=== PATIENT | male | born 1955 | race Two or more races ===

== ENCOUNTER 2024-08-14 11:56 | Emergency (ER) | payer MEDICARE, MEDICAID, SELFPAY ==
[2024-08-14 11:58] VITALS: BMI 33.7
[2024-08-14 12:39] VITALS: BP 152/92; PULSE 81; RESP 18; TEMP 36.9; O2SAT 94
--- NOTE | 2024-08-14 12:39 | PD.EDADULT ---
ED General RME/HPI General Chief complaint: Skin/Abscess/Foreign Body Stated complaint: RASH X 3 DAYS, GETTING WORSE Time Seen by Provider: 08/14/24 12:39 Arrival date/time: 08/14/24 11:56 CC: Rash spread out of the buttocks anterior and posterior legs and abdomen. Patient insistent that it happened 2 days after starting fluticasone and albuterol over the patient 2 weeks ago started on amoxicillin and azithromycin for a throat infection . Patient denies shortness of breath or difficulty breathing. Patient states a similar episode years ago which required hospital stay. Patient is awake alert oriented nontoxic-appearing not in any acute distress but mildly anxious. Related Data Previous Rx's ?Medication ?Instructions ?Recorded famotidine 20 mg tablet 20 mg PO QDAY #20 tabs 08/14/24 prednisone 20 mg tablet See Taper PO BID 3 days #6 tabs 08/14/24 Allergies Allergy/AdvReac Type Severity Reaction Status Date / Time No Known Allergies Allergy Verified 08/14/24 12:02 Review of Systems Review of Systems Narrative Review of Systems: GEN: No fever, no chills, no weight loss EYES: No discharge, no visual changes, no pain HEENT: No ear pain, no congestion, no sore throat PULM: No shortness of breath, no cough, no congestion CV: No chest pain, no dyspnea on exertion, no palpitations GI: No nausea, no vomiting, no diarrhea, no pain, no constipation : No frequency, no urgency, no dysuria MUSC/SKEL: No joint pain, no back pain SKIN: + rash PSYCH: No hallucinations, no depression HEME/LYMPH: No easy bleeding or bruising tendencies NEURO: No weakness, no headache Past Medical History Social History SMOKING STATUS: Never smoker ED Exam Narrative Physical exam: [General: Obese not in any acute distress Head normocephalic HEENT: Within acceptable limits Neck is supple nontender Chest equal chest rise nontender to palpation Respiratory: Clear to auscultation no wheezes crackles or rubs CV: Rate rhythm is regular no murmurs rubs or clicks Abdomen is distended secondary to body habitus soft nontender no masses positive bowel sounds all 4 quadrants Back: No CVA tenderness no spinous process tenderness from cervical spine thoracic and lumbar spine Skin: Widely scheduled various size round macular rash erythematous some with open centers others a small is 1 mm largest 1 cm. Noes particular pattern these are populating thigh hamstring and widely scattered in the lower extremities as well as the buttocks low back and the abdomen. There is no streaking surrounding erythema not warm to touch no oozing. Otherwise skin is intact no petechiae rash induration ulceration or crepitus Extremities: Moving all extremity against resistance cap refill less than 2 seconds neurosensory intact Neuro: Awake alert oriented x3 Glascow coma 15 no focal deficits] Course Quality Measures VTE prophylaxis Orders Category Date Time Status Dexamethasone Inj [Decadron Inj] Med 08/14/24 12:44 Discontinued 10 mg IM X1 ONE Vital Signs Vital signs: Vital Signs Temperature 98.5 F 08/14/24 12:39 Pulse Rate 81 08/14/24 12:39 Respiratory Rate 18 08/14/24 12:39 Blood Pressure 152/92 H 08/14/24 12:39 Pulse Oximetry (%) 94 L 08/14/24 12:39 Oxygen Delivery Method Room Air 08/14/24 12:39 [facility] Patient data External records reviewed:: [facility] previous records Clinical information provided by:: patient Social determinants that could affect healthcare access:: none Patient has the following chronic illnesses:: Obesity How is presenting disease/condition affected by chronic disease/condition?: uneffected by Evaluation data The following diagnostics were reviewed and interpreted by me:: other (specify) (None) Lab and/or radiology exams considered but not ordered:: Patient has had a number of introduction of new medications including a shot for arthritis 3 weeks ago, and a biotics 2 weeks ago, and then fluticasone and albuterol in the last 2 days. This looks like a typical delayed allergic reaction to antibiotics. However the patient is convinced the patient reactions are coming from fluticasone and albuterol. At this time we will restart the patient's prednisone which she had stopped 3 days ago and add famotidine. The patient is already on Benadryl. Patient is in advised if there is worsening of symptoms return the emergency room medially for further evaluation. Interpretation Summary: Delayed allergic reaction probable medication. Medications Medications considered but not ordered:: None Medication administrations:: Medication Administration History Discontinued Medications Dexamethasone Sodium Phosphate (Dexamethasone Sod Phos Inj 10 Mg/Ml Vial) 10 mg IM X1 ONE Stop: 08/14/24 12:45 Last Admin: 08/14/24 12:58 Dose: 10 mg Documented By: NKECHI None Consultations Consultation(s) initiated? (list below): No Diagnosis Differential Diagnosis ED Complaint MDM: Anaphylaxis contact dermatitis medication reaction medication reaction Most likely diagnosis given after review of the tests above:: Pain Admission Indicated Admission indicated?: not indicated Explain why admission is indicated or not indicated:: Stable for discharge Admission Request Was there a request for admission?: No Disposition Plan Disposition Plan: Discharge Discharge Attestation Discharge Attestation: The patient and all family members were given an opportunity to ask questions and understood the discharge instructions. Discharge instructions specifically effects, indications for sooner follow up or return to the emergency department, and the expected course of current diagnosis. Patient condition: Stable Medical Decision Making Differential Diagnosis Differential Diagnosis: Anaphylaxis contact dermatitis medication reaction medication reaction Discharge Plan Plan Patient Disposition: HOME (Self Care) Patient condition on transfer: Stable Prescriptions/Referrals Prescriptions/Med Rec: New prednisone 20 mg tablet See Taper PO BID 3 Days Qty: 6 0RF Taper: Prednisone Taper 20 mg DAILY for 2 Days and 0 Hour 10 mg DAILY for 2 Days and 0 Hour 5 mg DAILY for 7 Days and 0 Hour famotidine 20 mg tablet 20 mg PO QDAY Qty: 20 0RF Problem List Clinical Impression: Medication reaction Impression comment: Take the medications in addition to the Benadryl you have been prescribed follow-up with your primary care provider if there is a worsening of symptoms return the emergency room for further evaluation. Patient/Caregiver Discharge Instructions Education Materials: ED Drug Reaction, Other Print Language: Thai Stand Alone Forms: Catherine Award Info., Work/School Release, Patient Portal Info Letter RICARDO/GURVINDER Supervising Physician KRISTY Supervising Physician: Sudheer Rivera ENP
[2024-08-14] MEDS: DEXAMETHASONE SOD PHOS INJ 10 MG/ML VIAL IM (12:58)
[2024-08-14 13:01] VITALS: BP 141/94; PULSE 78; RESP 18; TEMP 37.1; O2SAT 95
== END 2024-08-14 13:04 | disposition home or self-care (01) ==
LOC: SERX 12:51
PROVIDERS: Emergency Provider Emergency Medicine; PCP Family Medicine
DX: R21 Rash and other nonspecific skin eruption (principal); T50.905A Adverse effect of unspecified drugs, medicaments and biological substances, initial encounter
CPT/HCPCS: 96372; 99283; J1100

== ENCOUNTER 2024-08-15 16:36 | Emergency (ER) | payer MEDICARE, MEDICAID, SELFPAY ==
[2024-08-15 16:38] VITALS: BMI 33.7
--- NOTE | 2024-08-15 17:23 | PD.EDRME ---
Rapid Medical Screening Exam RME Arrival date/time: 08/15/24 16:36 68-year-old male presents emergency department with complaints of rash which she believes is secondary to a medication he took Chief Complaint: Skin/Abscess/Foreign Body
[2024-08-15 17:24] VITALS: BP 148/86; PULSE 92; RESP 20; TEMP 37; O2SAT 96; BMI 33.7
[2024-08-15 17:56] LABS: Basophils % (Auto) 0 % (0-2.5); Eosinophils % (Auto) 0 % (0-10); Hematocrit 50.5 % (41.0-53.0); Hemoglobin 16.4 g/dL (13.5-16.0); Immature Granulocytes % (Auto) 1 % (0-0); Immature Granulocytes Auto 0.16 Thou/mm3 (0.00-0.00); Lymphocytes # (Auto) 3.2 Thou/mm3 (1.0-4.8); Lymphocytes % (Auto) 24 % (10-50); Mean Corpuscular HGB Conc 32.5 g/dl (31.0-37.0); Mean Corpuscular Volume 89 fL (80-100); Monocytes # (Auto) 1.4 Thou/mm3 (0.0-0.8); Monocytes % (Auto) 11 % (0-12); Neutrophils # (Auto) 8.6 Thou/mm3 (1.8-7.7); Neutrophils % (Auto) 64 % (37-80); Nucleated Red Blood Cell % 0 /100 WBC (0); Platelet Count 368 Thou/mm3 (140-440); RDW Standard Deviation 42.8 fL (35.1-43.9); Red Blood Count 5.66 Miln/mm3 (4.50-5.90); White Blood Count 13.3 Thou/mm3 (3.8-10.6)
[2024-08-15 18:09] LABS: INR 1.1 (0.9-1.3); Partial Thromboplastin Time 23.1 Seconds (22.0-36.0); Prothrombin Time 11.5 Seconds (9.0-12.2)
[2024-08-15 18:32] LABS: HIV (1&2) Antibody Rapid Non-Reactive
--- NOTE | 2024-08-15 18:34 | PC.NURSE ---
CALLED FROM [facility] AND NO ANSWER
[2024-08-15 18:38] LABS: Collection Type, Urine Clean Catch; Squamous Epithelial Cell,Urine 0 /hpf (0-5)
[2024-08-15 18:51] LABS: Sed Rate (ESR) 60 mm/hr (0-20)
[2024-08-15 18:53] LABS: Bilirubin,Urine Negative (Negative); Blood,Urine Negative (Negative); Clarity,Urine Clear (Clear/Hazy); Color,Urine Yellow (Lt Yel-Yel); Culture Indicated,Urine Not Indicated; Glucose, Urine Negative (Negative); Ketones,Urine Negative (Negative); Leukocyte Esterase,Urine Negative (Negative); Nitrite,Urine Negative (Negative); Protein,Urine Trace (Neg - Trace); RBC,Urine 2 /hpf (0-3); Urobilinogen,Urine Negative mg/dL (0.0-1.0); WBC,Urine 1 /hpf (0-5)
[2024-08-15 18:54] VITALS: BP 147/109; PULSE 93; RESP 18; TEMP 37.3; O2SAT 95
[2024-08-15 19:02] LABS: Alanine Aminotransferase 24 U/L (10-49); Albumin, Serum 4.3 gm/dL (3.4-4.8); Albumin/Globulin Ratio 1.3 (1.2-2.2); Alkaline Phosphatase 90 U/L (46-116); Anion Gap 7 (7-16); Aspartate Amino Transferase 32 U/L (0-34); BUN/Creatinine Ratio 15 Ratio (12-20); Bilirubin,Total 0.5 mg/dL (0.3-1.2); Blood Urea Nitrogen 15 mg/dL (9-23); C-Reactive Protein 1.4 mg/dL (0.0-0.9); Calcium 9.8 mg/dL (8.3-10.6); Calcium (Corrected) 9.8 mg/dL (8.5-10.1); Carbon Dioxide 27.8 mMol/L (20.0-31.0); Chloride 106 mMol/L (98-107); Estimated Creatinine Clearance 72.3 mL/min (>60); Globulin 3.4 gm/dL (2.3-3.5); Glucose 127 mg/dL (74-106); Osmolality,Calculated 284 (275-295); Potassium 4.6 mMol/L (3.4-5.1); Sodium 141 mMol/L (136-145); Total Protein 7.7 gm/dL (5.7-8.2); eGFR > 60 See Note
--- NOTE | 2024-08-15 19:23 | PD.EDADULT ---
ED General RME/HPI General Chief complaint: Skin/Abscess/Foreign Body Stated complaint: GENERALIZED RASH CAUSING SEVERE PAIN X 4 DAYS Time Seen by Provider: 08/15/24 19:12 Arrival date/time: 08/15/24 16:36 CC: Worsening rash now with pain HPI patient was seen by me 2 days ago for the same rash, patient states this is developed after he took fluticasone and albuterol however the patient had been on antibiotics for bronchitis 2 weeks prior to this. The patient said the rash is progressively gotten worse not in the extensive the body but the extent of the rash itself. Now the pain is 8 out of 10 scale there is itching. Inner thighs buttocks low back and abdomen are the worst areas. Patient denies shortness of breath difficulty breathing headache nausea vomiting or diarrhea. Medications patient was on prior was on amoxicillin and azithromycin. 2 days ago the patient was restarted on prednisone and given famotidine. Patient is already taking Benadryl. RME / HPI RME / HPI narrative: 08/15/24 16:36 68-year-old male presents emergency department with complaints of rash which she believes is secondary to a medication he took Related Data Previous Rx's ?Medication ?Instructions ?Recorded famotidine 20 mg tablet 20 mg PO QDAY #20 tabs 08/14/24 prednisone 20 mg tablet See Taper PO BID 3 days #6 tabs 08/14/24 meloxicam 7.5 mg tablet 7.5 mg PO QDAY #10 tabs 08/15/24 prednisone 20 mg tablet See Taper PO BID 3 days #6 tabs 08/15/24 Allergies Allergy/AdvReac Type Severity Reaction Status Date / Time No Known Allergies Allergy Verified 08/15/24 16:40 Review of Systems Review of Systems Narrative Review of Systems: GEN: No fever, no chills, no weight loss EYES: No discharge, no visual changes, no pain HEENT: No ear pain, no congestion, no sore throat PULM: No shortness of breath, no cough, no congestion CV: No chest pain, no dyspnea on exertion, no palpitations GI: No nausea, no vomiting, no diarrhea, no pain, no constipation : No frequency, no urgency, no dysuria MUSC/SKEL: No joint pain, no back pain SKIN: + rash PSYCH: No hallucinations, no depression HEME/LYMPH: No easy bleeding or bruising tendencies NEURO: No weakness, no headache Past Medical History Social History SMOKING STATUS: Never smoker ED Exam Narrative Physical exam: [General: Obese in moderate discomfort but not in any acute distress Head normocephalic HEENT: Eyes pupils are PERRLA EOMs are intact. Nose no rhinorrhea mouth pink moist membranes no rash within the oral cavity. All other subsystems of HEENT eyes acceptable limits Neck is supple nontender Chest equal chest rise nontender to palpation Respiratory: Clear to auscultation no wheezes crackles or rubs CV: Rate rhythm is regular no murmurs rubs or clicks Abdomen is distended secondary to body habitus soft nontender no masses positive bowel sounds all 4 quadrants Back: No CVA tenderness no spinous process tenderness from cervical spine thoracic and lumbar spine Skin: Darkened circular closed macular rash that covers the buttocks upper hamstrings thighs lower abdomen and lower legs. Nonspecific pattern no open lesions weeping or oozing centers of the circular areas are dark, with minimal surrounding erythema no streaking. Intact no petechiae rash induration ulceration or crepitus. No palm or sole involvement. No scalp or face involvement. Extremities: Moving all extremity against resistance cap refill less than 2 seconds neurosensory intact Neuro: Awake alert oriented x3 Glascow coma 15 no focal deficits] Course Course Course Narrative: No signs of HSP, no nuchal rigidity, neck stiffness, no mouth or palm or sole involvement. No fever. Patient's ESR CRP are elevated at 1.4 and 60 respectively. Pt disucssed wivasiliy Senior, we decided to rule out Bright-Pankaj syndrome TTP HSP vasculitis. Staph scalded syndrome. Quality Measures none Orders Category Date Time Status Saline [Insert IV] NOW Care 08/15/24 19:15 Active CBC Stat Lab 08/15/24 17:41 Completed CRP [C-Reactive Protein] Stat Lab 08/15/24 18:37 Completed Comprehensive Metabolic Panel Stat Lab 08/15/24 18:37 Completed ESR [Sed Rate (ESR)] Stat Lab 08/15/24 17:41 Completed HIV (1&2) Antibody Rapid Stat Lab 08/15/24 17:41 Completed Partial Thromboplastin Time Stat Lab 08/15/24 17:41 Completed Prothrombin Time with INR Stat Lab 08/15/24 17:41 Completed Urinalysis, C/S if Indicated Stat Lab 08/15/24 18:08 Completed Morphine Inj Med 08/15/24 19:15 Discontinued 4 mg IVP X1 ONE Ondansetron Inj [Zofran Inj] Med 08/15/24 19:15 Discontinued 4 mg IV X1 ONE oxyCODONE/APAP 5/325 [Percocet 5/325] Med 08/15/24 19:15 Discontinued 1 tab PO X1 ONE oxyCODONE/APAP 5/325 [Percocet 5/325] Med 08/15/24 20:37 Discontinued 1 tab PO X1 ONE Vital Signs Vital signs: Vital Signs Temperature 98.6 F 08/15/24 17:24 Pulse Rate 92 08/15/24 17:24 Respiratory Rate 20 08/15/24 17:24 Blood Pressure 148/86 H 08/15/24 17:24 Pulse Oximetry (%) 96 08/15/24 17:24 Oxygen Delivery Method Room Air 08/15/24 17:24 [facility] Patient data External records reviewed:: [facility] previous records Clinical information provided by:: patient Social determinants that could affect healthcare access:: none Patient has the following chronic illnesses:: None How is presenting disease/condition affected by chronic disease/condition?: uneffected by Evaluation data The following diagnostics were reviewed and interpreted by me:: lab results and radiology exam(s) Lab and/or radiology exams considered but not ordered:: CBC shows a mild leukocytosis of 13.3 H&H of 16.4 and 50.5. Platelet count of 368. ESR of 60 Coags within acceptable limits CMP shows no significant electrolyte imbalances renal impairment transaminitis or T. bili elevation C-reactive protein of 1.4. Urine is negative. HIV is negative. Interpretation Summary: Patient was assessed by Dr. Senior and myself, we reviewed the laboratory results we do not feel the patient has HSP TTP Henoch-Chicho?nlein syndrome, vasculitis, Bright-Pankaj syndrome. At this time we have decided to continue the patient steroids and discharge the patient home as he has stable vital signs mild leukocytosis renal function is normal there is no blood in the urine no renal impairment although there are a mild elevation in the C-reactive protein and ESR. Medications Medications considered but not ordered:: None Medication administrations:: Medication Administration History Discontinued Medications Morphine Sulfate (Morphine Sulf Inj 10 Mg/Ml Vial) 4 mg IVP X1 ONE Stop: 08/15/24 19:16 Last Admin: 08/15/24 21:10 Dose: Not Given Documented By: YAKOV Non-Admin Reason: Patient Refused Ondansetron HCl (Ondansetron Inj 2 Mg/Ml Inj 2 Ml) 4 mg IV X1 ONE; Protocol Stop: 08/15/24 19:16 Last Admin: 08/15/24 21:10 Dose: Not Given Documented By: YAKOV Non-Admin Reason: Patient Refused Oxycodone/Acetaminophen (Oxycodone/Apap 5/325 Tablet) 1 tab PO X1 ONE Stop: 08/15/24 19:16 Last Admin: 08/15/24 19:47 Dose: 1 tab Documented By: YAKOV Oxycodone/Acetaminophen (Oxycodone/Apap 5/325 Tablet) 1 tab PO X1 ONE Stop: 08/15/24 20:38 Last Admin: 08/15/24 21:04 Dose: 1 tab Documented By: YAKOV None Consultations Consultation(s) initiated? (list below): No Diagnosis Differential Diagnosis ED Complaint MDM: Alexey Pankja syndrome Henoch-Chicho?nlein syndrome TTP Most likely diagnosis given after review of the tests above:: Rash of unknown origin Admission Indicated Admission indicated?: not indicated Explain why admission is indicated or not indicated:: Stable for discharge Admission Request Was there a request for admission?: No Disposition Plan Disposition Plan: Discharge Discharge Attestation Discharge Attestation: The patient and all family members were given an opportunity to ask questions and understood the discharge instructions. Discharge instructions specifically effects, indications for sooner follow up or return to the emergency department, and the expected course of current diagnosis. Patient condition: Stable Medical Decision Making Differential Diagnosis Differential Diagnosis: Alexey Pankaj syndrome Henoch-Chicho?nlein syndrome TTP Lab Data 08/15/24 17:41 08/15/24 18:37 Labs: Lab Results 08/15/24 08/15/24 08/15/24 Range/Units 17:41 18:08 18:37 WBC 13.3 H (3.8-10.6) Thou/mm3 RBC 5.66 (4.50-5.90) Miln/mm3 Hgb 16.4 H (13.5-16.0) g/dL Hct 50.5 (41.0-53.0) % MCV 89 (80-100) fL MCH 29.0 (25.0-35.0) pg MCHC 32.5 (31.0-37.0) g/dl RDW Std Deviation 42.8 (35.1-43.9) fL Plt Count 368 (140-440) Thou/mm3 Neut % (Auto) 64 (37-80) % Lymph % (Auto) 24 (10-50) % [place] % (Auto) 11 (0-12) % Eos % (Auto) 0 (0-10) % Baso % (Auto) 0 (0-2.5) % Neut # (Auto) 8.6 H (1.8-7.7) Thou/mm3 Lymph # (Auto) 3.2 (1.0-4.8) Thou/mm3 [place] # (Auto) 1.4 H (0.0-0.8) Thou/mm3 Eos # (Auto) 0.0 (0.0-0.5) Thou/mm3 Baso # (Auto) 0.0 (0.0-0.2) Thou/mm3 Immature Gran # (Auto) 0.16 H (0.00-0.00) Thou/mm3 Absolute Nucleated RBC 0.00 (0.00-0.00) Thou/mm3 Immature Gran % 1 H (0-0) % Nucleated RBC % 0 (0) /100 WBC ESR 60 H (0-20) mm/hr PT 11.5 (9.0-12.2) Seconds INR 1.1 (0.9-1.3) APTT 23.1 (22.0-36.0) Seconds Sodium 141 (136-145) mMol/L Potassium 4.6 (3.4-5.1) mMol/L Chloride 106 (98-107) mMol/L Carbon Dioxide 27.8 (20.0-31.0) mMol/L Anion Gap 7 (7-16) BUN 15 (9-23) mg/dL Creatinine 1.0 (0.6-1.3) mg/dL Estim Creat Clear Calc 72.3 (>60) mL/min eGFR > 60 (60 - ) See Note BUN/Creatinine Ratio 15 (12-20) Ratio Glucose 127 H (74-106) mg/dL Calculated Osmolality 284 (275-295) Calcium 9.8 (8.3-10.6) mg/dL Corrected Calcium 9.8 (8.5-10.1) mg/dL Total Bilirubin 0.5 (0.3-1.2) mg/dL AST 32 (0-34) U/L ALT 24 (10-49) U/L Alkaline Phosphatase 90 (46-116) U/L C-Reactive Prot, Quant 1.4 H (0.0-0.9) mg/dL Total Protein 7.7 (5.7-8.2) gm/dL Albumin 4.3 (3.4-4.8) gm/dL Globulin 3.4 (2.3-3.5) gm/dL Albumin/Globulin Ratio 1.3 (1.2-2.2) Ur Collection Type Cancelled Clean Catch Urine Color Cancelled Yellow Urine Clarity Cancelled Clear Urine pH Cancelled 6.0 Ur Specific [place] Cancelled 1.020 Urine Protein Cancelled Trace Urine Glucose (UA) Cancelled Negative Urine Ketones Cancelled Negative Urine Blood Cancelled Negative Urine Nitrite Cancelled Negative Urine Bilirubin Cancelled Negative Urine Urobilinogen (Auto) Cancelled Negative Ur Leukocyte Esterase Cancelled Negative Urine RBC Cancelled 2 Urine WBC Cancelled 1 Ur Squamous Epith Cells Cancelled 0 Ur Transition Epith Cell Cancelled Ur Renal Epithelial Cell Cancelled Calcium Carbonate Cryst Cancelled Calcium Phosphate Cryst Cancelled Calcium Oxalate Crystal Cancelled Leucine Crystals Cancelled Cystine Crystals Cancelled Uric Acid Crystals Cancelled Triple Phos Crystals Cancelled Tyrosine Crystals Cancelled Amorphous Crystals Cancelled Urine Bacteria Cancelled None Cellular Casts Cancelled Epithelial Casts Cancelled Fatty Casts Cancelled Hyaline Casts Cancelled Granular Casts Cancelled Waxy Casts Cancelled Broad Casts Cancelled RBC Casts Cancelled Urine Mucus Cancelled Urine Trichomonas Cancelled Ur Yeast w Hyphae Cancelled Urine Yeast (Budding) Cancelled Urine Sperm Cancelled Ur Oval Fat Bodies Cancelled Ur Culture Indicated? Cancelled Not Indicated HIV 1&2 Antibody Rapid Non-Reactive Discharge Plan Plan Patient Disposition: HOME (Self Care) Prescriptions/Referrals Prescriptions/Med Rec: New prednisone 20 mg tablet See Taper PO BID 3 Days Qty: 6 0RF Taper: Prednisone Taper 20 mg DAILY for 2 Days and 0 Hour 10 mg DAILY for 2 Days and 0 Hour 5 mg DAILY for 7 Days and 0 Hour meloxicam 7.5 mg tablet 7.5 mg PO QDAY Qty: 10 0RF No Action prednisone 20 mg tablet See Taper PO BID 3 Days Qty: 6 0RF Taper: Prednisone Taper 20 mg DAILY for 2 Days and 0 Hour 10 mg DAILY for 2 Days and 0 Hour 5 mg DAILY for 7 Days and 0 Hour famotidine 20 mg tablet 20 mg PO QDAY Qty: 20 0RF Referrals: Uche Cartwright MD [Primary Care Provider] - In 1 week Problem List Clinical Impression: Rash and nonspecific skin eruption Patient/Caregiver Discharge Instructions Education Materials: ED Dermatitis Non Specific Rash Print Language: Lao Stand Alone Forms: Catherine Award Info., Patient Portal Info Letter, Work/School Release PA/HAY FARMER Supervising Physician PA/HAY FARMER Supervising Physician: Sudheer Rivera ENP
[2024-08-15] MEDS: oxyCODONE/APAP 5/325 TABLET 1 TAB PO ×2 (19:47→21:04)
[2024-08-15 20:28] VITALS: BP 141/105; PULSE 98; RESP 18; TEMP 37; O2SAT 98
== END 2024-08-15 21:28 | disposition home or self-care (01) ==
PROVIDERS: Nurse Practitioner Primary Care; Emergency Provider Family Medicine; PCP Family Medicine
DX: R21 Rash and other nonspecific skin eruption (principal)
CPT/HCPCS: 36415; 80053; 81001; 85025; 85610; 85652; 85730; 86140; 86703; 99283; A9270